=== PATIENT | male | born 1945 | race Caucasian/White ===

== ENCOUNTER → 2017-04-15 | Outpatient (CLI) | payer MEDICARE ==
--- NOTE | 2017-04-15 16:16 | PCVCIMAG ---
APPROVED REPORT Indications CVD, Prior Dissection of RT ICA Doppler Spectral Velocity Analysis PSV / EDVPSV / EDV ECA (R) 83 / 10 cm/sECA (L) 74 / 9 cm/s dICA (R) 40 / 10 cm/sdICA (L) 93 / 28 cm/s Suzy (R) 87 / 28 cm/smICA (L) 88 / 25 cm/s pICA (R) 64 / 17 cm/spICA (L) 53 / 16 cm/s Bulb (R) 70 / 16 cm/sBulb (L) 56 / 15 cm/s dCCA (R) 95 / 23 cm/sdCCA (L) 95 / 21 cm/s mCCA (R) 72 / 19 cm/smCCA (L) 84 / 18 cm/s Vert (R) 42 / 11 cm/sVert (L) 67 / 22 cm/s ICA/CCA 0.92ICA/CCA 0.98 Basic Measurements Blood Pressure: Pulses: Right Left RightLeft Brachial(Sitting) 116/73alFm282/86mmHgTemporal Real Time B-Mode Imaging Vert. (R)AntegradeVert. (L)Antegrade Findings The right carotid bulb has minimal plaque. The right proximal internal carotid artery shows no significant stenosis. The right common carotid artery shows no significant stenosis. The right external carotid artery shows no significant stenosis. The left carotid bulb has moderate heterogeneous plaque. The left proximal internal carotid artery shows <40% stenosis. The left common carotid artery shows no significant stenosis. The left external carotid artery shows no significant stenosis. Conclusion 1. Right internal carotid artery plaquing 2. Left internal carotid artery stenosis (<40%) 3. Antegrade vertebral flow No change from Feb 2016
== END | disposition home or self-care (01) ==
LOC: PCVCIMAG 13:16
PROVIDERS: ATTEND Internal Medicine
DX: I65.23 Occlusion and stenosis of bilateral carotid arteries (principal); I25.10 Atherosclerotic heart disease of native coronary artery without angina pectoris; I77.71 Dissection of carotid artery; E78.5 Hyperlipidemia, unspecified; G47.33 Obstructive sleep apnea (adult) (pediatric); C02.9 Malignant neoplasm of tongue, unspecified; K21.9 Gastro-esophageal reflux disease without esophagitis; Z85.810 Personal history of malignant neoplasm of tongue; Z79.82 Long term (current) use of aspirin; Z87.891 Personal history of nicotine dependence
CPT/HCPCS: 80061; 93005; 93880; G0463

== ENCOUNTER → 2018-04-22 | Outpatient (CLI) | payer MEDICARE ==
--- NOTE | 2018-04-22 09:37 | PCVCIMAG ---
APPROVED REPORT Indications History of Carotid dissection Doppler Spectral Velocity Analysis PSV / EDVPSV / EDV ECA (R) 80 / 15 cm/sECA (L) 99 / 23 cm/s dICA (R) 76 / 22 cm/sdICA (L) 53 / 20 cm/s Suzy (R) 73 / 28 cm/smICA (L) 89 / 30 cm/s pICA (R) 56 / 20 cm/spICA (L) 66 / 27 cm/s Bulb (R) 54 / 15 cm/sBulb (L) 60 / 14 cm/s dCCA (R) 80 / 22 cm/sdCCA (L) 74 / 20 cm/s mCCA (R) 103 / 29 cm/smCCA (L) 88 / 31 cm/s Vert (R) 38 / 15 cm/sVert (L) 49 / 19 cm/s ICA/CCA 0.75ICA/CCA 1.01 Basic Measurements Blood Pressure: Pulses: Right Left RightLeft Brachial(Sitting) 130/84poQt137/82mmHgTemporal Real Time B-Mode Imaging Vert. (R)AntegradeVert. (L)Antegrade Findings The right carotid bulb has no significant plaque. The right proximal internal carotid artery shows no significant stenosis. The right common carotid artery shows no significant stenosis. The right external carotid artery shows no significant stenosis. The left carotid bulb has milmoderate plaque. The left proximal internal carotid artery shows no significant stenosis. The left common carotid artery shows <40% significant stenosis. The left external carotid artery shows no significant stenosis. Conclusion 1. Right carotid artery without significant stenosis 2. Left internal carotid artery mild-moderate plaquing (<40% stenosis) 3. Antegrade vertebral flow Similar to March 2017
== END | disposition home or self-care (01) ==
LOC: PCVCIMAG 14:20
PROVIDERS: ATTEND Internal Medicine
DX: I25.10 Atherosclerotic heart disease of native coronary artery without angina pectoris (principal); I65.22 Occlusion and stenosis of left carotid artery; I77.71 Dissection of carotid artery; E78.5 Hyperlipidemia, unspecified; G47.33 Obstructive sleep apnea (adult) (pediatric); C02.9 Malignant neoplasm of tongue, unspecified; Z87.891 Personal history of nicotine dependence; Z79.82 Long term (current) use of aspirin
CPT/HCPCS: 80061; 93005; 93880; G0463

== ENCOUNTER → 2019-04-12 | Outpatient (CLI) | payer MEDICARE ==
--- NOTE | 2019-04-12 16:25 | PCVCIMAG ---
APPROVED REPORT Indications Stenosis hX OF DISSECTION Doppler Spectral Velocity Analysis PSV / EDVPSV / EDV ECA (R) 99 / 13 cm/sECA (L) 80 / 14 cm/s dICA (R) 74 / 27 cm/sdICA (L) 67 / 24 cm/s Suzy (R) 86 / 33 cm/smICA (L) 84 / 33 cm/s pICA (R) 86 / 28 cm/spICA (L) 84 / 31 cm/s Bulb (R) 88 / 22 cm/sBulb (L) 62 / 14 cm/s dCCA (R) 112 / 27 cm/sdCCA (L) 88 / 21 cm/s mCCA (R) 106 / 26 cm/smCCA (L) 79 / 17 cm/s Vert (R) 45 / 15 cm/sVert (L) 57 / 19 cm/s ICA/CCA 0.77ICA/CCA 0.95 Basic Measurements Blood Pressure: Pulses: Right Left RightLeft Brachial(Sitting) 118/89pyZu505/74mmHgTemporal Real Time B-Mode Imaging Vert. (R)AntegradeVert. (L)Antegrade Findings The right carotid bulb has no significant plaque. The right proximal internal carotid artery shows no significant stenosis. The right common carotid artery shows no significant stenosis. The right external carotid artery shows no significant stenosis. The left carotid bulb has mild-moderate plaque. The left proximal internal carotid artery shows <40% stenosis. The left common carotid artery shows no significant stenosis. The left external carotid artery shows no significant stenosis. Conclusion 1. Right internal carotid artery without significant stenosis. 2. Left internal carotid artery stenosis (<40%) 3. Antegrade vertebral flow
== END | disposition home or self-care (01) ==
LOC: PCVCIMAG 13:12
PROVIDERS: ATTEND Internal Medicine
DX: I25.10 Atherosclerotic heart disease of native coronary artery without angina pectoris (principal); I65.23 Occlusion and stenosis of bilateral carotid arteries; I77.71 Dissection of carotid artery; E78.5 Hyperlipidemia, unspecified; G47.33 Obstructive sleep apnea (adult) (pediatric); C02.9 Malignant neoplasm of tongue, unspecified; K21.9 Gastro-esophageal reflux disease without esophagitis; Z87.891 Personal history of nicotine dependence; Z72.89 Other problems related to lifestyle; Z79.899 Other long term (current) drug therapy; Z79.82 Long term (current) use of aspirin
CPT/HCPCS: 93005; 93880; G0463